=== PATIENT | male | born 1980 | race American Indian/Alaskan Native ===

== ENCOUNTER 2020-05-10 19:17 | Emergency (ER) | payer SELFPAY ==
--- NOTE | 2020-05-10 21:13 | Event Note ---
ED Screening Note Date of service: 05/10/20 Time: 21:12 ED Screening Note: Pt complains of insect bite to left lower leg x 2 days possible I&D This initial assessment/diagnostic orders/clinical plan/treatment(s) is/are subject to change based on patients health status, clinical progression and re- assessment by fellow clinical providers in the ED. Further treatment and workup at subsequent clinical providers discretion. Patient/guardian urged not to elope from the ED as their condition may be serious if not clinically assessed and managed. Initial orders include: ACC
[2020-05-10] MEDS ORDERED: IBUPROFEN 600 MG TAB PO ONE (21:24)
[2020-05-10] MEDS ORDERED: HYDROcodone/ACETAMINOPHEN 5-325 MG TAB PO ONE (21:27)
[2020-05-10] MEDS ORDERED: SULFAMETHOXAZOLE/TRIMETHOPRIM 800/160MG DS TAB PO ONE (22:37)
[2020-05-10] MEDS ORDERED: predniSONE 20 MG TAB PO ONE (22:38)
--- NOTE | 2020-05-10 22:49 | Emergency Department Report ---
- General Chief Complaint: Wound/Laceration Stated Complaint: insect bite Time Seen by Provider: 05/10/20 21:10 Source: patient Mode of arrival: Ambulatory Limitations: No Limitations - History of Present Illness Initial Comments: Patient is a 40-year-old -Citizen Of [place] male with past medical history of bipolar d/o presents to the ED with complaint of acute onset persistent painful left lower leg swelling erythematous maculopapular rash with purulent discharge the last 2 days after being bitten by an unknown insect 2 days ago. Patient states that the pain has been persistent and worse especially in the last 12 hours. Patient denies fever, chills, nausea, vomiting, dizziness, syncope, numbness and tingling or weakness of left leg, traumatic injury, falls, back pain or knee pain. -: Sudden, days(s) (2) Location: other (left lower leg) Extremity Location: Left: Lower Leg (anterior left lower leg) 1 - swollen painful erythematous maculopapular nonfluctuant rash with purulent discharge Place: home Patient Tetanus UTD: No Context: other (insect bites) Associated Symptoms: pain. denies: loss of feeling/numbness, suspect foreign body present, unable to move injured part, weakness followed by dizziness, nausea/vomiting, fever, other - Related Data Previous Rx's Medication Instructions Recorded Last Taken Type Promethazine /Codeine 5 ml PO Q6H PRN #50 ml 09/22/14 Unknown Rx [Phenergan/Codeine 6.25-10 mg/5 ml] HYDROcodone/APAP 5-325 [Horton 1 - 2 each PO Q6HR PRN #14 tablet 12/01/14 Unknown Rx 5/325] Acetaminophen/Codeine [Tylenol 1 tab PO Q6H PRN #12 tab 05/10/20 Unknown Rx /Codeine # 3 tab] Ibuprofen [Motrin] 800 mg PO Q8HR PRN #30 tablet 05/10/20 Unknown Rx Sulfamethoxazole/Trimethoprim 1 each PO Q12H #20 tablet 05/10/20 Unknown Rx [Bactrim DS TAB] Allergies Allergy/AdvReac Type Severity Reaction Status Date / Time No Known Allergies Allergy Verified 12/30/13 06:25 ED Review of Systems ROS: Stated complaint: insect bite Other details as noted in HPI Constitutional: denies: chills, fever Eyes: denies: eye pain, eye discharge, vision change ENT: denies: ear pain, throat pain Respiratory: denies: cough, shortness of breath, wheezing Cardiovascular: denies: chest pain, palpitations Endocrine: no symptoms reported Gastrointestinal: denies: abdominal pain, nausea, diarrhea Genitourinary: denies: urgency, dysuria Musculoskeletal: arthralgia (left lower leg pain due to erythematous maculopapular swollen nonfluctuant rash with purulent discharge). denies: back pain, joint swelling Skin: rash (Erythematous maculopapular nonfluctuant painful rash with purulent discharge on left lower leg), change in color, pruritus. denies: lesions Neurological: denies: headache, weakness, paresthesias Psychiatric: denies: anxiety, depression Hematological/Lymphatic: denies: easy bleeding, easy bruising ED Past Medical Hx - Past Medical History Previous Medical History?: Yes Hx Psychiatric Treatment: Yes (depression/bipolar) Additional medical history: unknown pt uncooperative - Surgical History Past Surgical History?: Yes Additional Surgical History: unknown pt uncooperative - Social History Smoking Status: Current Every Day Smoker Substance Use Type: None - Medications Home Medications: Home Medications Medication Instructions Recorded Confirmed Last Taken Type Promethazine /Codeine 5 ml PO Q6H PRN #50 ml 09/22/14 Unknown Rx [Phenergan/Codeine 6.25-10 mg/5 ml] HYDROcodone/APAP 5-325 [Horton 1 - 2 each PO Q6HR PRN #14 tablet 12/01/14 Unknown Rx 5/325] Acetaminophen/Codeine [Tylenol 1 tab PO Q6H PRN #12 tab 05/10/20 Unknown Rx /Codeine # 3 tab] Ibuprofen [Motrin] 800 mg PO Q8HR PRN #30 tablet 05/10/20 Unknown Rx Sulfamethoxazole/Trimethoprim 1 each PO Q12H #20 tablet 05/10/20 Unknown Rx [Bactrim DS TAB] ED Physical Exam - General Limitations: No Limitations General appearance: alert, in no apparent distress - Head Head exam: Present: atraumatic, normocephalic, normal inspection - Eye Eye exam: Present: normal appearance, PERRL, EOMI Pupils: Present: normal accommodation - ENT ENT exam: Present: normal exam, normal orophraynx, mucous membranes moist, TM's normal bilaterally, normal external ear exam - Neck Neck exam: Present: normal inspection, full ROM. Absent: tenderness, meningismus, lymphadenopathy, thyromegaly - Respiratory Respiratory exam: Present: normal lung sounds bilaterally. Absent: respiratory distress, wheezes, rales, rhonchi, chest wall tenderness, accessory muscle use, decreased breath sounds, prolonged expiratory - Cardiovascular Cardiovascular Exam: Present: normal rhythm, tachycardia, normal heart sounds. Absent: systolic murmur, diastolic murmur, rubs, gallop - GI/Abdominal GI/Abdominal exam: Present: soft, normal bowel sounds. Absent: tenderness, guarding, rebound, hyperactive bowel sounds, hypoactive bowel sounds, mass - Extremities Exam Extremities exam: Present: normal inspection, full ROM, tenderness (Palpable tenderness of the left lower leg due to a swollen erythematous maculopapular nonfluctuant rash with purulent discharge), normal capillary refill. Absent: calf tenderness - Back Exam Back exam: Present: normal inspection, full ROM. Absent: tenderness, CVA tenderness (R), CVA tenderness (L), muscle spasm, paraspinal tenderness, vertebral tenderness - Neurological Exam Neurological exam: Present: alert, oriented X3, normal gait, reflexes normal - Psychiatric Psychiatric exam: Present: normal affect, normal mood - Skin Skin exam: Present: warm, dry, intact, rash (Erythematous maculopapular nonfluctuant tender rash on anterior left lower leg with purulent discharge), erythema ED Course Vital Signs 05/10/20 05/10/20 21:17 23:32 Temperature 98.5 F 98.2 F Pulse Rate 111 H 102 H Respiratory 20 18 Rate Blood Pressure 130/87 Blood Pressure 132/81 [Left] O2 Sat by Pulse 96 99 Oximetry ED Medical Decision Making - Medical Decision Making This is a 40-year-old -Citizen Of [place] male with past medical history of bipolar d/o presents to the ED with complaint of acute onset persistent painful left lower leg swelling erythematous maculopapular rash with purulent discharge the last 2 days after being bitten by an unknown insect 2 days ago. Patient states that the pain has been persistent and worse especially in the last 12 hours. In the ED, patient is alert and oriented x3 and is not in any distress. Patient was treated for pain in the ED and also given initial oral antibiotics. Patient will discharge home on pain medication and oral antibiotics advised to follow-up with his primary care physician in 7 to 10 days for reevaluation or return to the ED immediately if symptoms get worse. - Differential Diagnosis cellulitis; puncture wound; folliculitis; insect bite Critical care attestation.: If time is entered above; I have spent that time in minutes in the direct care of this critically ill patient, excluding procedure time. ED Disposition Clinical Impression: Cellulitis of left lower extremity without foot Insect bite of left lower leg with infection Qualifiers: Encounter type: initial encounter Qualified Code(s): S80.862A - Insect bite (nonvenomous), left lower leg, initial encounter Disposition: TO HOME OR SELFCARE Is pt being admited?: No Does the pt Need Aspirin: No Condition: Stable Instructions: Cellulitis, Adult, [id number], Insect Bite, Adult, [id number] Additional Instructions: Take medication with food, drink plenty of fluids and follow-up with your primary care physician in 7 to 10 days for reevaluation. Return to the ED immediately if symptoms get worse. Prescriptions: Sulfamethoxazole/Trimethoprim [Bactrim DS TAB] 1 each PO Q12H #20 tablet Ibuprofen [Motrin] 800 mg PO Q8HR PRN #30 tablet PRN Reason: Pain , Severe (7-10) Acetaminophen/Codeine [Tylenol /Codeine # 3 tab] 1 tab PO Q6H PRN #12 tab PRN Reason: Pain , Severe (7-10) Referrals: [facility] [Provider Group] - 7-10 days Time of Disposition: 23:01 Print Language: LIBERIAN
[2020-05-10 23:33] VITALS: BP 132/81
== END 2020-05-10 23:23 | disposition home or self-care (01) ==
LOC: ED 19:17
DX: S80.862A Insect bite (nonvenomous), left lower leg, initial encounter (principal); L03.116 Cellulitis of left lower limb; F17.200 Nicotine dependence, unspecified, uncomplicated; F31.9 Bipolar disorder, unspecified; X58.XXXA Exposure to other specified factors, initial encounter; Y93.89 Activity, other specified; Y92.89 Other specified places as the place of occurrence of the external cause; Y99.8 Other external cause status
CPT/HCPCS: 99282; J7512